=== PATIENT | male | born 1980 | race American Indian/Alaskan Native ===

== ENCOUNTER 2021-12-10 11:12 | Emergency (ER) | payer SELFPAY ==
[2021-12-10 11:32] VITALS: BP 137/96
--- NOTE | 2021-12-10 14:24 | Emergency Department Report ---
ED Eye Problem HPI - General Chief complaint: Eye Problems Stated complaint: POSS PINK EYE Source: patient Mode of arrival: Ambulatory Limitations: No Limitations - History of Present Illness Initial comments: 41-year-old male with no significant medical history presents with pinkeye in his right eye. 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 Describes itching, clear drainage coming out of the eye, he denies foreign body in the eye, he denies vision changes, no headache, no nausea or vomiting, no cough cold congestion, he does not use glasses or contacts. Pain is worse with lights, no eyes no blurry vision MD chief complaint: eye pain, eye redness -: Gradual, days(s) If Injury: none Eye Symptoms: burning, itching, discharge Severity: moderate Consistency: intermittent Context: other (Denies) Associated Symptoms: none. denies: nausea/vomiting, rhinorrhea, fever, shortness of breath Treatments Prior to Arrival: none - Related Data Previous Rx's Medication Instructions Recorded Last Taken Type Erythromycin [Erythromycin Ophth 0 gm OU QID #1 tube 12/10/21 Unknown Rx Oint] Ketorolac Tromethamine [Ketorolac 1 drop OP TID PRN #5 ml 12/10/21 Unknown Rx Tromethamine 0.4% opth soln] ED Review of Systems ROS: Stated complaint: POSS PINK EYE Other details as noted in HPI Constitutional: denies: chills, fever Eyes: eye pain, eye discharge ENT: denies: ear pain, throat pain, hearing loss Respiratory: denies: cough Cardiovascular: denies: chest pain, palpitations Endocrine: denies: intolerance to cold, intolerance to heat Gastrointestinal: denies: abdominal pain, nausea, vomiting Genitourinary: denies: urgency Musculoskeletal: denies: back pain Neurological: denies: headache, weakness, paresthesias Psychiatric: denies: anxiety, depression ED Past Medical Hx - Past Medical History Previous Medical History?: No - Surgical History Past Surgical History?: No - Social History Smoking Status: Never Smoker - Medications Home Medications: Home Medications Medication Instructions Recorded Confirmed Last Taken Type Erythromycin [Erythromycin Ophth 0 gm OU QID #1 tube 12/10/21 Unknown Rx Oint] Ketorolac Tromethamine [Ketorolac 1 drop OP TID PRN #5 ml 12/10/21 Unknown Rx Tromethamine 0.4% opth soln] ED Physical Exam - General Limitations: No Limitations General appearance: alert - Head Head exam: Present: atraumatic - Eye Eye exam: Present: PERRL. Absent: conjunctival injection, periorbital swelling, periorbital tenderness Pupils: Present: normal accommodation, other (Conjunctive erythema on the right, no chemosis, no periorbital swelling or tenderness, no injection, PERRLA intact) - ENT ENT exam: Present: normal exam, normal orophraynx, mucous membranes moist - Neck Neck exam: Present: normal inspection - Respiratory Respiratory exam: Present: normal lung sounds bilaterally. Absent: respiratory distress, wheezes - Cardiovascular Cardiovascular Exam: Present: regular rate, normal rhythm - GI/Abdominal GI/Abdominal exam: Present: soft. Absent: distended - Extremities Exam Extremities exam: Present: normal inspection, full ROM - Back Exam Back exam: Present: normal inspection - Neurological Exam Neurological exam: Present: alert, oriented X3, normal gait - Psychiatric Psychiatric exam: Present: normal affect, normal mood - Skin Skin exam: Present: warm, dry, intact ED Course Vital Signs 12/10/21 11:31 Temperature 98.9 F Pulse Rate 103 H Respiratory 18 Rate Blood Pressure 137/96 [Left] O2 Sat by Pulse 99 Oximetry ED Medical Decision Making - EKG Data Rate: normal - Medical Decision Making 41-year-old male with no significant medical history presents with pinkeye in his right eye. 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 Describes itching, clear drainage coming out of the eye, he denies foreign body in the eye, he denies vision changes, no headache, no nausea or vomiting, no cough cold congestion, he does not use glasses or contacts. Pain is worse with lights, no eyes no blurry vision 10/40- L 10/50- R 10/40 MARGARITA Without corrective lenses, recommend patient follow-up outpatient with all round logger. Erythromycin ointment with some ketorolac drops for pain, handwashing, eye protection with understanding. Ambulate steadily out of the emergency department without assistance. Critical care attestation.: If time is entered above; I have spent that time in minutes in the direct care of this critically ill patient, excluding procedure time. ED Disposition Clinical Impression: Conjunctivitis, right eye Disposition: HOME / SELF CARE / HOMELESS Is pt being admited?: No Does the pt Need Aspirin: No Condition: Stable Instructions: How to Use Eye Drops and Eye Ointments Prescriptions: Erythromycin [Erythromycin Ophth Oint] 0 gm OU QID #1 tube Ketorolac Tromethamine [Ketorolac Tromethamine 0.4% opth soln] 1 drop OP TID PRN #5 ml PRN Reason: EYE PAIN Forms: Work/School Release Form(ED)
== END 2021-12-10 15:15 | disposition home or self-care (01) ==
LOC: ED 11:12
DX: H10.9 Unspecified conjunctivitis (principal)
CPT/HCPCS: 99282